=== PATIENT | female | born 1965 | race Hispanic/Latino ===

== ENCOUNTER 2018-02-18 00:52 | Emergency (ER) | payer OTHER ==
[2018-02-18 01:13] VITALS: RESP 18; O2SAT 100
--- NOTE | 2018-02-18 02:20 | ED PDOC ---
HPI: Skin/Bite Injury Time Seen by Provider: 02/18/18 01:23 Chief Complaint (Nursing): Abnormal Skin Integrity Chief Complaint (Provider): Rash History Per: Patient History/Exam Limitations: no limitations Onset/Duration Of Symptoms: Days (x 6) Additional Complaint(s): 52 year old female with a history of hypothyroidism presents to the ED for evaluation of an itchy rash on her chin associated with bumps and little pimples. The rash started six days ago after tweezing her chin hair. The patient has reported taking Benadryl yesterday, but did not take any medications today. Throughout today she also noticed some swelling to her chin and right side of her neck. Denies fever/chills. No other complaints at present. PMD: Dr. Tapia Past Medical History Reviewed: Historical Data, Nursing Documentation, Vital Signs Vital Signs: Last Vital Signs Temp 98.2 F 02/18/18 03:07 Pulse 74 02/18/18 03:07 Resp 18 02/18/18 03:07 BP 122/74 02/18/18 03:07 Pulse Ox 100 02/18/18 05:01 - Medical History PMH: Hypothyroidism - Surgical History Other surgeries: hysterectomy and hemithyroidectomy - Family History Family History: States: Unknown Family Hx - Home Medications Home Medications: Ambulatory Orders Medication Instructions Recorded Cephalexin [Keflex] 500 mg PO TID #21 capsule 02/18/18 Clindamycin Phosphate 1 applic TOP BID #120 ml 02/18/18 Naproxen 500 mg PO BID PRN #20 tab 02/18/18 - Allergies Allergies/Adverse Reactions: Allergies Allergy/AdvReac Type Severity Reaction Status Date / Time No Known Allergies Allergy Verified 02/18/18 01:06 Review of Systems ROS Statement: Except As Marked, All Systems Reviewed And Found Negative Skin: Positive for: Rash (on chin; associated with pimples and swelling) Physical Exam - Reviewed Nursing Documentation Reviewed: Yes Vital Signs Reviewed: Yes - Physical Exam Comments: GENERAL APPEARANCE: Patient is awake, alert, oriented x 3, resting comfortably. Skin: folliculitis noted to the chin, submental region, and right jawline. (+) mild erythema, (+) multiple pustules; (-) warmth, (-) crusting/discharge ENMT: Mucous membranes moist. Airway patent: (-) stridor. Pharynx: Uvula midline (-) swelling, (-) erythema. Mandible with FROM, TMJ nontender. Neck: Supple, FROM (+) right anterior cervical chain lymphadenopathy Cardiac: regular rate and rhythm Respiratory: lungs clear to auscultation bilaterally Neuro: Mental status as above, gait steady, speech clear. (-) focal deficit (-) aphasia - ECG O2 Sat by Pulse Oximetry: 100 (RA) Pulse Ox Interpretation: Normal Medical Decision Making Medical Decision Makin:33 Impression: Folliculitis of chin Initial Plan: --Toradol 30 mg IM --Keflex 500 mg PO --Re-evaluation 214 On re-evaluation, patient reports improvement of symptoms. On exam, patient remains AAOx3, in no acute distress. Lungs clear to auscultation, cardiac RRR, repeat neuro exam shows no focal findings. Vitals stable. Lab / Diagnostic results d/w the patient in great detail. Diagnosis of folliculitis d/w the patient. Based on history, exam and diagnostic results, plan will be for outpatient follow up. Patient instructed to follow-up with pmd / referral provided / the clinic in 1- 2 days without fail. Advised to take medication as prescribed. Return to the emergency room at any time for any new or worsening symptoms. Patient states she fully agrees with and understands discharge instructions. States that she agrees with the plan and disposition. Verbalized and repeated discharge instructions and plan. I have given the patient opportunity to ask any additional questions. Disposition - Clinical Impression Clinical Impression: Folliculitis, Neck pain - Patient ED Disposition Is Patient to be Admitted: No Counseled Patient/Family Regarding: Studies Performed, Diagnosis, Need For Followup, Rx Given - Disposition Disposition: Routine/Home Disposition Time: 02:19 Condition: STABLE Additional Instructions: The emergency medical care you received today was directed at your acute symptoms. If you were prescribed any medication, please fill it and take as directed. It may take several days for your symptoms to resolve. Return to the Emergency Department if your symptoms worsen, do not improve, or if you have any other problems. Please contact your doctor in 2 days for re-evaluation and follow up / or call one of the physicians/clinics you have been referred to that are listed on the Patient Visit Information form that is included in your discharge packet. Bring any paperwork you were given at discharge with you along with any medications you are taking to your follow up visit. Our treatment cannot replace ongoing medical care by a primary care provider (PCP) outside of the emergency department. Prescriptions: Cephalexin [Keflex] 500 mg PO TID #21 capsule Clindamycin Phosphate 1 applic TOP BID #120 ml Naproxen 500 mg PO BID PRN #20 tab PRN Reason: Pain, Swelling Instructions: Folliculitis (DC) Forms: [facility] (French) Print Language: SUDANESE - POA Present On Arrival: None
[2018-02-18 03:08] VITALS: BP 122/74; PULSE 74; TEMP 98.2
== END 2018-02-18 02:40 | disposition home or self-care (01) ==
LOC: H.ER 00:52
DX: L73.9 Follicular disorder, unspecified (principal); Z90.710 Acquired absence of both cervix and uterus; M54.2 Cervicalgia; E03.9 Hypothyroidism, unspecified
CPT/HCPCS: 96372; 99282; J1885